=== PATIENT | female | born 1955 | race Caucasian/White ===

== ENCOUNTER 2020-08-16 01:00 | Inpatient (IN) ==
[2020-08-16 01:45] LABS: ABS Basophils 0.1 10^3/ul (0-0.2); ABS Eosinophils 0.5 10^3/ul (0-0.6); ABS Lymphocytes 3.1 10^3/ul (1.0-4.8); ABS Monocytes 0.9 10^3/ul (0-0.8); ABS Neutrophils 4.7 10^3/ul (1.5-7.7); Eosinophil % 5.7 %; Hematocrit 40 % (35-47); Hemoglobin 13.6 g/dL (12.0-16.0); Lymphocyte % 33.4 %; Mean Corpuscular HGB Conc 34 g/dL (31-36); Mean Corpuscular Hemoglobin 29 pg (27-31); Mean Corpuscular Volume 84 fL (80-97); Platelet Count 300 10^3/uL (150-450); Red Blood Count 4.75 10^6 /uL (3.70-4.87); Red Cell Distribution Width 13 % (10-15); White Blood Count 9.2 10^3/uL (3.5-10.8)
[2020-08-16 01:52] LABS: INR 0.96 (0.82-1.09)
[2020-08-16 02:03] LABS: ALT 15 U/L (7-52); Albumin 4.1 g/dL (3.2-5.2); Albumin/Globulin Ratio 1.3 (1-3); Alkaline Phosphatase 72 U/L (34-104); BUN/Creatinine Ratio 24.3 (8-20); Blood Urea Nitrogen 18 mg/dL (6-24); CO2 Carbon Dioxide 25 mmol/L (22-32); Calcium 9.8 mg/dL (8.6-10.3); Chloride 102 mmol/L (101-111); EGFR Non-African American 78.5 (>60); Globulin 3.2 g/dL (2-4); Glucose 121 mg/dL (70-100); Sodium 137 mmol/L (135-145); Total Protein 7.3 g/dL (6.4-8.9)
[2020-08-16 02:09] LABS: Anion Gap 10 mmol/L (2-11); Troponin I 0.14 ng/mL (<0.03)
[2020-08-16] MEDS ORDERED: Iohexol 350 (CONTRAST) 500 ML MDV IV ONE (02:17)
[2020-08-16 04:00] LABS: Activated Partial Thrombo Time 34.2 seconds (26.0-38.0)
[2020-08-16] MEDS ORDERED: Heparin 5000 UNITS/ML 1 mL VIAL IV SCH (04:00)
[2020-08-16] MEDS ORDERED: Heparin DRIP 25,000 UNITS BAG 25,000 UNITS/500 ML BAG IV SCH (04:00)
[2020-08-16 04:29] LABS: Cholesterol 313 mg/dL; HDL Cholesterol 41.5 mg/dL; LDL Cholesterol 197 mg/dL; Triglycerides 371 mg/dL
[2020-08-16] MEDS: Nitro 2% OINT (Nitroglycerin) 1 INCH/PAK TOPICAL SCH ×2 (06:32→13:49)
[2020-08-16] MEDS ORDERED: NS 0.9% 1000 ml BAG 1,000 ML IV SCH ×2 (08:15→13:00)
[2020-08-16 08:22] LABS: Troponin I 0.61 ng/mL (<0.03)
[2020-08-16] MEDS ORDERED: ICOSAPENT ETHYL 1 GM CAPSULE (NF) PO SCH (09:00)
[2020-08-16] MEDS ORDERED: Iohexol 350 (CONTRAST) 200 ML MDV IV ONE (11:06)
[2020-08-16] MEDS ORDERED: Heparin 2 UNITS/ML 1000 mls 2,000 ML IV ONE (11:06)
[2020-08-16] MEDS ORDERED: Lidocaine 1% VIAL 10 MG/ML VIAL ONE ×2 (11:06→11:29)
[2020-08-16] MEDS ORDERED: VERAPAMIL 2.5 MG/ML 2 ML VIAL ** 5 mg/2 ml ONE (11:28)
[2020-08-16] MEDS ORDERED: Heparin 1,000 UNIT/ML 10 ml (10,000 UNITS) CATHLAB/DIALYSIS ONE (11:28)
[2020-08-16] MEDS ORDERED: fentaNYL 100 mcg/2 ml 50 MCG/ML VIAL ONE (11:28)
[2020-08-16] MEDS ORDERED: Midazolam 5 mg/5 ml VIAL 1 mg/ml 5 ml VIAL (5 mg) ONE (11:28)
[2020-08-16] MEDS ORDERED: nitroGLYCERIN DRIP 25,000 MCG/250 ML BTL ONE (11:29)
[2020-08-16] MEDS ORDERED: Albuterol HFA INHALER 8 gm MDI INH PRN (13:01)
[2020-08-16] MEDS ORDERED: Ondansetron 4 mg VIAL 2 MG/ML 2 ml VIAL IV ONE (13:45)
[2020-08-16] MEDS ORDERED: Prochlorperazine 5 mg/ml 2 ml VIAL (10 mg) IV PRN (13:50)
[2020-08-16] MEDS: Ondansetron 4 mg VIAL 2 MG/ML 2 ml VIAL ONE ×2 (13:52→14:28)
[2020-08-16] MEDS: Nitro OINT Remove TOPICAL SCH ×2 (13:54→17:57)
[2020-08-16 14:12] LABS: CKMB ng/mL 4.5 ng/mL (0.6-6.3)
[2020-08-16 14:17] LABS: Troponin I 0.49 ng/mL (<0.03)
[2020-08-16 20:29] LABS: CKMB ng/mL 8.9 ng/mL (0.6-6.3)
[2020-08-16 20:31] LABS: Troponin I 0.64 ng/mL (<0.03)
[2020-08-16] MEDS: Heparin 5000 UNITS/ML 1 mL VIAL SUBCUT SCH (21:04)
[2020-08-17] MEDS: ICOSAPENT ETHYL 1 GM CAPSULE (NF) PO SCH ×2 (01:03→08:43)
[2020-08-17 02:10] LABS: CKMB ng/mL 9.8 ng/mL (0.6-6.3)
[2020-08-17 02:12] LABS: Troponin I 0.93 ng/mL (<0.03)
[2020-08-17] MEDS: Nitro 2% OINT (Nitroglycerin) 1 INCH/PAK TOPICAL SCH (05:13)
[2020-08-17] MEDS: Heparin 5000 UNITS/ML 1 mL VIAL SUBCUT SCH ×2 (05:13→12:58)
[2020-08-17 05:31] LABS: ABS Basophils 0.1 10^3/ul (0-0.2); ABS Eosinophils 0.2 10^3/ul (0-0.6); ABS Lymphocytes 2.3 10^3/ul (1.0-4.8); ABS Monocytes 0.8 10^3/ul (0-0.8); ABS Neutrophils 4.9 10^3/ul (1.5-7.7); Eosinophil % 2.4 %; Hematocrit 37 % (35-47); Lymphocyte % 28.3 %; Mean Corpuscular HGB Conc 33 g/dL (31-36); Mean Corpuscular Hemoglobin 28 pg (27-31); Mean Corpuscular Volume 85 fL (80-97); Mean Platelet Volume 6.8 fL (7.4-10.4); Platelet Count 277 10^3/uL (150-450); Red Blood Count 4.32 10^6 /uL (3.70-4.87); Red Cell Distribution Width 13 % (10-15); White Blood Count 8.2 10^3/uL (3.5-10.8)
[2020-08-17 05:47] LABS: ALT 12 U/L (7-52); AST 22 U/L (13-39); Albumin 3.6 g/dL (3.2-5.2); Albumin/Globulin Ratio 1.5 (1-3); Alkaline Phosphatase 57 U/L (34-104); Anion Gap 6 mmol/L (2-11); BUN/Creatinine Ratio 21.4 (8-20); Blood Urea Nitrogen 12 mg/dL (6-24); CO2 Carbon Dioxide 24 mmol/L (22-32); Calcium 8.5 mg/dL (8.6-10.3); Chloride 107 mmol/L (101-111); Cholesterol 254 mg/dL; EGFR African American 131.1 (>60); EGFR Non-African American 108.3 (>60); Globulin 2.4 g/dL (2-4); Glucose 92 mg/dL (70-100); HDL Cholesterol 36.2 mg/dL; LDL Cholesterol 150 mg/dL; Potassium 3.9 mmol/L (3.5-5.0); Sodium 137 mmol/L (135-145); Triglycerides 340 mg/dL
[2020-08-17 08:58] LABS: Troponin I 1.03 ng/mL (<0.03)
[2020-08-17 12:29] VITALS: BP 139/94
[2020-08-17] MEDS ORDERED: CMCS: OMEGA-3 FATTY ACID 1000 mg(NF) PO SCH (15:00)
== END 2020-08-17 16:20 | disposition home or self-care (01) | DRG 281 ==
LOC: ICU 01:00 → ED 01:00 → MEDTELE 08-17 10:21
PROVIDERS: ADMIT Internal Medicine; ATTEND Hospitalist

== ENCOUNTER 2022-06-28 09:34 | Observation (INO) ==
[2022-06-28 10:05] LABS: ABS Basophils 0.1 10^3/ul (0-0.2); ABS Eosinophils 0.5 10^3/ul (0-0.6); ABS Lymphocytes 2.4 10^3/ul (1.0-4.8); ABS Monocytes 0.5 10^3/ul (0-0.8); ABS Neutrophils 3.1 10^3/ul (1.5-7.7); Eosinophil % 8.2 %; Hematocrit 44 % (35-47); Lymphocyte % 36.2 %; Mean Corpuscular HGB Conc 32 g/dL (31-36); Mean Corpuscular Hemoglobin 28 pg (27-31); Mean Corpuscular Volume 86 fL (80-97); Mean Platelet Volume 7.1 fL (7.4-10.4); Nucleated Red Blood Cells % 0.1; Platelet Count 235 10^3/uL (150-450); Red Blood Count 5.06 10^6 /uL (3.70-4.87); Red Cell Distribution Width 14 % (10-15); White Blood Count 6.6 10^3/uL (3.5-10.8)
[2022-06-28 10:10] LABS: INR 1.04 (0.89-1.11)
[2022-06-28 10:39] LABS: Albumin 4.3 g/dL (3.2-5.2); Albumin/Globulin Ratio 1.7 (1-3); Calcium 9.2 mg/dL (8.6-10.3); Globulin 2.6 g/dL (2-4); Potassium 3.7 mmol/L (3.5-5.0); Total Bilirubin 0.5 mg/dL (0.2-1.0); Total Protein 6.9 g/dL (6.4-8.9); eGFR CKD-EPI 94.8 (>60)
[2022-06-28 11:17] LABS: High Sensitivity Troponin 1 Hr 20 pg/mL (<15)
[2022-06-28 17:50] LABS: HDL Cholesterol 47.2 mg/dL
[2022-06-28 18:03] LABS: Albumin 4.1 g/dL (3.2-5.2); Calcium 8.9 mg/dL (8.6-10.3); Potassium 3.6 mmol/L (3.5-5.0); Total Bilirubin 0.3 mg/dL (0.2-1.0)
[2022-06-28 18:09] LABS: Albumin/Globulin Ratio 1.5 (1-3); Globulin 2.8 g/dL (2-4); Total Protein 6.9 g/dL (6.4-8.9); eGFR CKD-EPI 96.9 (>60)
[2022-06-29 05:58] LABS: ABS Basophils 0.1 10^3/ul (0-0.2); ABS Eosinophils 0.6 10^3/ul (0-0.6); ABS Monocytes 0.6 10^3/ul (0-0.8); ABS Neutrophils 3.4 10^3/ul (1.5-7.7); Eosinophil % 8.4 %; Hematocrit 43 % (35-47); Hemoglobin 14.3 g/dL (12.0-16.0); Lymphocyte % 38.5 %; Mean Corpuscular HGB Conc 33 g/dL (31-36); Mean Corpuscular Hemoglobin 29 pg (27-31); Mean Corpuscular Volume 86 fL (80-97); Mean Platelet Volume 6.9 fL (7.4-10.4); Platelet Count 239 10^3/uL (150-450); Red Cell Distribution Width 13 % (10-15); White Blood Count 7.7 10^3/uL (3.5-10.8)
[2022-06-29] MEDS: Enoxaparin 30 MG/0.3 ML SYR SUBCUT SCH (20:13)
[2022-06-30] MEDS: Enoxaparin 30 MG/0.3 ML SYR SUBCUT SCH (21:10)
[2022-07-01 09:00] LABS: ABS Basophils 0.1 10^3/ul (0-0.2); ABS Eosinophils 0.5 10^3/ul (0-0.6); ABS Lymphocytes 2.3 10^3/ul (1.0-4.8); ABS Monocytes 0.6 10^3/ul (0-0.8); ABS Neutrophils 3.9 10^3/ul (1.5-7.7); Eosinophil % 6.4 %; Hematocrit 42 % (35-47); Hemoglobin 13.8 g/dL (12.0-16.0); Lymphocyte % 31.5 %; Mean Corpuscular HGB Conc 33 g/dL (31-36); Mean Corpuscular Hemoglobin 28 pg (27-31); Mean Corpuscular Volume 86 fL (80-97); Mean Platelet Volume 6.9 fL (7.4-10.4); Platelet Count 259 10^3/uL (150-450); Red Blood Count 4.91 10^6 /uL (3.70-4.87); Red Cell Distribution Width 13 % (10-15); White Blood Count 7.4 10^3/uL (3.5-10.8)
[2022-07-01 09:53] LABS: Calcium 9.2 mg/dL (8.6-10.3); Potassium 4.3 mmol/L (3.5-5.0); eGFR CKD-EPI 95.1 (>60)
[2022-07-01 15:57] VITALS: BP 124/76
== END 2022-07-01 17:00 | disposition home or self-care (01) ==
LOC: EDHOLD 09:34 → ED 09:34 → MEDTELE 20:00
PROVIDERS: ADMIT Internal Medicine; ATTEND Internal Medicine